=== PATIENT | female | born 1970 | race Caucasian/White ===

== ENCOUNTER → 2020-07-31 | Outpatient (CLI) | payer BC ==
[2020-07-31 09:35] LABS: EOS # 0.1 (0.04-0.40); EOS % 1.1 % (1.0-5.0); HEMATOCRIT 38.4 % (37.0-47.0); HEMOGLOBIN 12.4 g/dL (12.5-16.0); LYMPH# 1.8 (1.50-4.00); MEAN CELL VOLUME 89 fl (78-100); MEAN CORPUSCULAR HEMOGLOBIN 29 pg (27-31); MEAN CORPUSCULAR HGB CONC 32 g/dL (33-37); MEAN PLATELET VOLUME 10.7 fl (7.4-10.4); MONO # 0.4 (0.20-0.80); PLATELET COUNT 259 K/mm3 (130-400); RED BLOOD COUNT 4.34 M/mm3 (4.10-5.30); RED CELL DISTRIBUTION WIDTH 12.9 % (11.5-14.5); WHITE BLOOD COUNT 6.3 K/mm3 (4.8-10.8)
[2020-07-31 10:17] LABS: ALBUMIN 3.9 g/dL (3.5-5.0); POTASSIUM 4.4 mmol/L (3.5-5.1)
[2020-07-31 10:18] LABS: CALCIUM 9.2 mg/dL (8.3-10.5)
[2020-07-31 10:20] LABS: TOTAL PROTEIN 7.1 g/dL (6.4-8.3)
[2020-07-31 10:21] LABS: TOTAL BILIRUBIN 0.3 mg/dL (0.2-1.2)
[2020-07-31 10:26] LABS: MAGNESIUM 1.78 mg/dL (1.60-2.60)
== END ==
LOC: LAB 09:13
PROVIDERS: Internal Medicine
DX: Z00.00 Encounter for general adult medical examination without abnormal findings (principal)

== ENCOUNTER → 2023-09-15 | Outpatient (CLI) | payer BC ==
[2023-09-15 12:11] LABS: BASO # 0.04 K/mm3 (0.02-0.10); EOS # 0.07 K/mm3 (0.04-0.40); EOS % 1.2 % (1.0-5.0); HEMATOCRIT 39.7 % (37.0-47.0); LYMPH# 1.96 K/mm3 (1.50-4.00); MEAN CELL VOLUME 90 fl (78-100); MEAN CORPUSCULAR HEMOGLOBIN 29 pg (27-31); MEAN CORPUSCULAR HGB CONC 33 g/dL (33-37); MEAN PLATELET VOLUME 10.2 fl (7.4-10.4); MONO # 0.43 K/mm3 (0.20-0.80); NEU # 3.49 K/mm3 (1.40-6.50); PLATELET COUNT 306 K/mm3 (130-400); RED BLOOD COUNT 4.43 M/mm3 (4.10-5.30); RED CELL DISTRIBUTION WIDTH 12.9 % (11.5-14.5)
[2023-09-15 12:24] LABS: ALBUMIN 4.1 g/dL (3.5-5.0)
[2023-09-15 12:25] LABS: CALCIUM 9.2 mg/dL (8.3-10.5)
[2023-09-15 12:26] LABS: TOTAL PROTEIN 7.3 g/dL (6.4-8.3)
[2023-09-15 12:28] LABS: TOTAL BILIRUBIN 0.4 mg/dL (0.2-1.2)
== END ==
LOC: LAB 11:54
PROVIDERS: Internal Medicine
DX: Z00.00 Encounter for general adult medical examination without abnormal findings (principal)

== ENCOUNTER 2024-11-23 15:04 | Emergency (ER) | payer BC ==
[~2024-11-23] VITALS: Ht 172.7 cm; Wt 79.5 kg
[2024-11-23 15:27] LABS: BASO # 0.04 K/mm3 (0.02-0.10); EOS # 0.12 K/mm3 (0.04-0.40); EOS % 1.7 % (1.0-5.0); HEMATOCRIT 41.9 % (37.0-47.0); HEMOGLOBIN 13.8 g/dL (12.5-16.0); LYMPH# 2.55 K/mm3 (1.50-4.00); MEAN CELL VOLUME 90 fl (78-100); MEAN CORPUSCULAR HEMOGLOBIN 30 pg (27-31); MEAN CORPUSCULAR HGB CONC 33 g/dL (33-37); MEAN PLATELET VOLUME 10.5 fl (7.4-10.4); MONO # 0.54 K/mm3 (0.20-0.80); NEU # 3.94 K/mm3 (1.40-6.50); PLATELET COUNT 268 K/mm3 (130-400); RED BLOOD COUNT 4.68 M/mm3 (4.10-5.30); RED CELL DISTRIBUTION WIDTH 12.4 % (11.5-14.5); WHITE BLOOD COUNT 7.2 K/mm3 (4.8-10.8)
[2024-11-23 15:48] LABS: ALBUMIN 4.2 g/dL (3.5-5.0)
[2024-11-23 15:50] LABS: CALCIUM 9.3 mg/dL (8.3-10.5)
[2024-11-23 15:51] LABS: TOTAL PROTEIN 7.5 g/dL (6.4-8.3)
[2024-11-23 15:53] LABS: TOTAL BILIRUBIN 0.5 mg/dL (0.2-1.2)
[2024-11-23] MEDS ORDERED: APRESOLINE 25MG25 MG PO (17:02)
[2024-11-23 17:27] LABS: URINE APPEARANCE CLEAR (CLEAR); URINE BILIRUBIN NEGATIVE (NEGATIVE); URINE BLOOD NEGATIVE (NEGATIVE); URINE COLOR LIGHT YELLOW (YELLOW); URINE GLUCOSE NEGATIVE (NEGATIVE); URINE KETONE NEGATIVE (NEGATIVE); URINE LEUKOCYTE ESTERASE NEGATIVE (NEGATIVE); URINE NITRATE NEGATIVE (NEGATIVE); URINE PROTEIN(semi-quant) NEGATIVE (NEGATIVE); URINE WBC 0-1 /hpf (0-3)
[2024-11-23 17:40] VITALS: BP 159/85
== END 2024-11-23 17:41 | disposition home or self-care (01) ==
LOC: ED 15:04
PROVIDERS: Family Medicine
DX: I16.0 Hypertensive urgency (principal); E87.6 Hypokalemia; R73.9 Hyperglycemia, unspecified

== ENCOUNTER → 2024-11-28 | Outpatient (CLI) | payer BC ==
[~2024-11-28] MED LIST: APRESOLINE 25MG25 MG PO
[2024-11-28 08:10] LABS: CALCIUM 9.4 mg/dL (8.3-10.5)
[2024-11-28 08:17] LABS: MAGNESIUM 1.59 mg/dL (1.60-2.60)
== END ==
LOC: LAB 07:38
PROVIDERS: Internal Medicine
DX: I16.0 Hypertensive urgency (principal); E78.2 Mixed hyperlipidemia; R73.9 Hyperglycemia, unspecified